=== PATIENT | male | born 1980 | race Caucasian/White ===

== ENCOUNTER 2023-07-28 22:00 | Emergency (ER) | payer SELFPAY ==
[~2023-07-28] VITALS: Ht 170.2 cm; Wt 81.6 kg
[2023-07-28 22:15] VITALS: BP 142/89; PULSE 92; RESP 16; TEMP 98.3; O2SAT 95
[2023-07-28 23:17] VITALS: BP 142/89; PULSE 92; RESP 16; TEMP 98.3; O2SAT 95
== END 2023-07-28 23:17 | disposition home or self-care (01) ==
LOC: EDSEX 22:00 → MED 22:00
DX: F10.129 Alcohol abuse with intoxication, unspecified; Z79.899 Other long term (current) drug therapy; Y90.9 Presence of alcohol in blood, level not specified; V49.88XA Car occupant (driver) (passenger) injured in other specified transport accidents, initial encounter; Y93.89 Activity, other specified; Y92.89 Other specified places as the place of occurrence of the external cause; Y99.8 Other external cause status
CPT/HCPCS: 71045; 99283